=== PATIENT | female | born 1990 | race American Indian/Alaskan Native ===

== ENCOUNTER 2019-04-09 12:44 | Emergency (ER) | payer OTHER ==
[2019-04-09 12:53] VITALS: BP 134/88
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
== END 2019-04-09 13:33 | disposition home or self-care (01) ==
LOC: ED 12:44
DX: S13.4XXA Sprain of ligaments of cervical spine, initial encounter (principal); Z79.899 Other long term (current) drug therapy; V49.49XA Driver injured in collision with other motor vehicles in traffic accident, initial encounter; Y93.89 Activity, other specified; Y92.410 Unspecified street and highway as the place of occurrence of the external cause; Y99.8 Other external cause status